=== PATIENT | male | born 1950 | race Caucasian/White ===

== ENCOUNTER 2018-06-27 07:22 | Day surgery (SDC) | payer MEDICARE, OTHER ==
[2018-06-27] MEDS ORDERED: PROPOFOL 500 MG/50 ML EMU IV ONE (07:55)
[2018-06-27 08:43] VITALS: RESP 16
[2018-06-27 09:05] VITALS: BP 156/85; PULSE 68; TEMP 96.8; O2SAT 98
== END 2018-06-27 09:20 | disposition home or self-care (01) | DRG 951 ==
LOC: SURG 07:22
PROVIDERS: ATTEND Surgery
DX: Z12.11 Encounter for screening for malignant neoplasm of colon (principal); K57.32 Diverticulitis of large intestine without perforation or abscess without bleeding; E11.9 Type 2 diabetes mellitus without complications; Z86.010 Personal history of colon polyps
CPT/HCPCS: J2704